=== PATIENT | male | born 1930 | race Caucasian/White ===

== ENCOUNTER 2018-10-10 16:22 | Inpatient (IN) ==
[2018-10-10] MEDS ORDERED: ROBITUSSIN (PLAIN) GT PRN (19:44)
[2018-10-10] MEDS ORDERED: SALINE 0.9% 3 ML NEB TX NEB PRN (20:01)
[2018-10-10] MEDS ORDERED: MIRALAX POWDER (1 DOSE 17 G) PO PRN (20:04)
[2018-10-10] MEDS: DUONEB 0.5 MG/3 MG NEB SCH (20:19)
[2018-10-10] MEDS: LIPITOR TAB 40 MG GT SCH (21:34)
[2018-10-10] MEDS: XALATAN EACHEYE SCH (21:35)
[2018-10-10] MEDS: SENOKOT PO SCH (21:35)
[2018-10-10] MEDS: ARTIFICIAL TEARS DROPS EACHEYE SCH (21:36)
[2018-10-10] MEDS: HEPARIN SODIUM INJ 5000 UNITS SC SCH (22:44)
[2018-10-11 06:04] LABS: BASOPHILS # (AUTO) 0.1 X10^3/uL (0.0-0.1); BASOPHILS % (AUTO) 0.5 % (0.2-1.0); EOSINOPHILS # (AUTO) 0.2 x10^3/uL (0.0-0.2); EOSINOPHILS % (AUTO) 2.2 % (0.9-2.9); HEMOGLOBIN 13.1 g/dL (13.5-18.0); LYMPHOCYTES % (AUTO) 9.1 % (21.0-51.0); MEAN CORPUSCULAR HEMOGLOBIN 30.4 pg (27.0-34.0); MEAN CORPUSCULAR HGB CONC 34.6 g/dL (33.0-35.0); MEAN PLATELET VOLUME 9.2 fL (7.4-11.0); MONOCYTES # (AUTO) 1.2 x10^3/uL (0.3-0.8); MONOCYTES % (AUTO) 10.8 % (0.0-13.0); NEUTROPHILS # (AUTO) 8.9 x10^3/uL (2.2-4.8); NEUTROPHILS % (AUTO) 77.4 % (42.0-75.0); PLATELET COUNT 325 X10^3/uL (150.0-450.0); RED BLOOD COUNT 4.31 X10^6/uL (4.7-6.0); RED CELL DISTRIBUTION WIDTH 14.6 % (11.6-16.5); WHITE BLOOD COUNT 11.5 X10^3/uL (3.6-10.0)
[2018-10-11] MEDS: ARTIFICIAL TEARS DROPS EACHEYE SCH ×3 (06:05→22:12)
[2018-10-11 06:15] LABS: ALANINE AMINOTRANSFERASE 45 Units/L (12-78); ALBUMIN 2.6 g/dL (3.4-5.0); ALKALINE PHOSPHATASE 68 Units/L (46-116); ASPARTATE AMINO TRANSFERASE 35 Units/L (15-37); BLOOD UREA NITROGEN 45 mg/dL (7-18); CALCIUM 8.5 mg/dL (8.5-10.1); CARBON DIOXIDE 25.4 mmol/L (21-32); CHLORIDE 108 mmol/L (98-107); COR CA(FOR HYPOALB) 9.6 mg/dL (8.5-10.1); COR NA(FOR HYPERGLY) 142 mmol/L (136-145); CREATININE 0.93 mg/dL (0.70-1.30); SODIUM 142 mmol/L (136-145); eGFR NON BLACK RACES > 60 (>60)
[2018-10-11] MEDS ORDERED: K-DUR TAB 20 MEQ PO PRN (06:19)
[2018-10-11] MEDS ORDERED: MAGNESIUM SULFATE 1 GRAM/100 mL PREMIX 1 GM/100 ML BAG IV PRN (06:19)
[2018-10-11] MEDS ORDERED: KLOR-CON PO PRN (06:19)
[2018-10-11] MEDS ORDERED: POTASSIUM CHLORIDE LIQ 20 MEQ UDC PO PRN (06:19)
[2018-10-11] MEDS ORDERED: K-RIDER 10 MEQ/NS 100 ML 10 MEQ/100 ML BAG IV PRN (06:19)
[2018-10-11] MEDS ORDERED: POTASSIUM CHL 60 MEQ/NS 0.45% 500 ML IV PRN (06:19)
[2018-10-11] MEDS ORDERED: MICRO K EXTEN CAP 10 MEQ PO PRN (06:19)
[2018-10-11] MEDS ORDERED: POTASSIUM CHL 40 MEQ/NS 0.45% 500 ML IV PRN (06:19)
[2018-10-11] MEDS: HEPARIN SODIUM INJ 5000 UNITS SC SCH ×3 (06:26→21:00)
--- NOTE | 2018-10-11 07:08 | RAD ---
History: Left-sided weakness. Study: Single-view chest. Comparison: None. Findings: The trachea is midline. The cardiac silhouette is at the upper limits of normal in size given the portable technique. There is subsegmental atelectasis in the right lung base. The lungs are otherwise clear without focal consolidation, pleural effusion or pneumothorax. There is an old healed fracture of the midclavicle on the left. The bony thorax is otherwise grossly unremarkable. Impression: Subsegmental atelectasis in the right lung base. Otherwise, no acute cardiopulmonary process. Reported By:
[2018-10-11] MEDS: DUONEB 0.5 MG/3 MG NEB SCH ×3 (09:00→17:52)
[2018-10-11] MEDS: LASIX GT SCH (10:01)
[2018-10-11] MEDS: CLARITIN GT SCH (10:01)
[2018-10-11] MEDS: ASPIRIN GT SCH (10:01)
[2018-10-11] MEDS: PROzac PO SCH (10:01)
[2018-10-11] MEDS ORDERED: BUTT CREAM (COMPOUND) TOP PRN (14:00)
[2018-10-11] MEDS ORDERED: BUTT CREAM (COMPOUND) ONE (14:01)
--- NOTE | 2018-10-11 15:14 | RAD ---
HISTORY: Cough Study: Single view of the chest. Comparison: None. Findings: The cardiomediastinal silhouette is normal. Interval development of left lung base opacity. Osseous structures demonstrate no acute abnormality. Bilateral hyper expansion with coarsening of interstitial markings. IMPRESSION: 1. New left lung base opacity which may represent acute infection. 2. Findings of COPD. Reported By:
[2018-10-11] MEDS ORDERED: XOPENEX 1.25 MG/3 ML NEBULE NEB SCH (17:15)
[2018-10-11] MEDS ORDERED: XOPENEX 1.25 MG/3 ML NEBULE NEB PRN (17:17)
[2018-10-11] MEDS ORDERED: PHARMACY CONSULT - DOSE _____ XX SCH (18:00)
[2018-10-11] MEDS ORDERED: NS 100 ML IV 100 ML IV ONE (18:28)
[2018-10-11] MEDS: LEVAQUIN PREMIX IV 750 MG 750 MG/150 ML BAG IV SCH (18:48)
[2018-10-11] MEDS: LIPITOR TAB 40 MG GT SCH (20:43)
[2018-10-11] MEDS: SENOKOT PO SCH (20:43)
[2018-10-11] MEDS: XALATAN EACHEYE SCH (20:44)
[2018-10-11] MEDS: TYLENOL ELIXIR 325 MG UDC GT PRN (20:47)
[2018-10-11] MEDS: BROVANA IN SCH (21:13)
[2018-10-11] MEDS: PULMICORT NEB TX 0.5 MG NEB SCH (21:13)
[2018-10-12] MEDS: XOPENEX 1.25 MG/3 ML NEBULE NEB SCH ×6 (00:48→17:15)
[2018-10-12] MEDS: ARTIFICIAL TEARS DROPS EACHEYE SCH ×3 (05:21→21:10)
[2018-10-12] MEDS: HEPARIN SODIUM INJ 5000 UNITS SC SCH ×3 (05:21→21:10)
[2018-10-12 06:10] LABS: BASOPHILS # (AUTO) 0.1 X10^3/uL (0.0-0.1); BASOPHILS % (AUTO) 0.5 % (0.2-1.0); EOSINOPHILS # (AUTO) 0.2 x10^3/uL (0.0-0.2); EOSINOPHILS % (AUTO) 1.6 % (0.9-2.9); HEMATOCRIT 37.3 % (42.0-54.0); LYMPHOCYTES # (AUTO) 0.9 X10^3/uL (1.3-2.9); LYMPHOCYTES % (AUTO) 8.2 % (21.0-51.0); MEAN CORPUSCULAR HEMOGLOBIN 30.4 pg (27.0-34.0); MEAN CORPUSCULAR HGB CONC 34.9 g/dL (33.0-35.0); MEAN CORPUSCULAR VOLUME 87.2 fL (80.0-100.0); MEAN PLATELET VOLUME 9.1 fL (7.4-11.0); MONOCYTES # (AUTO) 1.3 x10^3/uL (0.3-0.8); MONOCYTES % (AUTO) 11.6 % (0.0-13.0); NEUTROPHILS # (AUTO) 8.9 x10^3/uL (2.2-4.8); NEUTROPHILS % (AUTO) 78.1 % (42.0-75.0); PLATELET COUNT 356 X10^3/uL (150.0-450.0); RED BLOOD COUNT 4.28 X10^6/uL (4.7-6.0); RED CELL DISTRIBUTION WIDTH 14.3 % (11.6-16.5); WHITE BLOOD COUNT 11.4 X10^3/uL (3.6-10.0)
[2018-10-12 06:25] LABS: ALANINE AMINOTRANSFERASE 42 Units/L (12-78); ALBUMIN 2.6 g/dL (3.4-5.0); ALKALINE PHOSPHATASE 69 Units/L (46-116); ASPARTATE AMINO TRANSFERASE 31 Units/L (15-37); BLOOD UREA NITROGEN 38 mg/dL (7-18); CALCIUM 8.5 mg/dL (8.5-10.1); CARBON DIOXIDE 25.8 mmol/L (21-32); CHLORIDE 107 mmol/L (98-107); COR CA(FOR HYPOALB) 9.6 mg/dL (8.5-10.1); CREATININE 1.06 mg/dL (0.70-1.30); SODIUM 140 mmol/L (136-145); eGFR NON BLACK RACES > 60 (>60)
[2018-10-12] MEDS: BROVANA IN SCH ×2 (07:59→20:17)
[2018-10-12] MEDS: PULMICORT NEB TX 0.5 MG NEB SCH ×2 (07:59→20:17)
[2018-10-12] MEDS: LASIX GT SCH (10:06)
[2018-10-12] MEDS: LEVAQUIN PREMIX IV 750 MG 750 MG/150 ML BAG IV SCH (10:06)
[2018-10-12] MEDS: ASPIRIN GT SCH (10:07)
[2018-10-12] MEDS: CLARITIN GT SCH (10:07)
[2018-10-12] MEDS: PROzac PO SCH (10:07)
--- NOTE | 2018-10-12 17:58 | DR.H&P ---
H&P - History & Physical for Day of: H&P Date: 10/11/18 - Chief Complaint Chief Complaint: FAMILY REPORTS SOB, CHEST CONGESTION - History of Present Illness History of Present Illness: 88 WM TRANSFER FROM [place] IN [facility] FOLLOWING FEEDING TUBE PLACEMENT DUE TO CVA WITH DYSPHAGIA. PT CONTINUES WITH MILD GENERALIZED WEAKNESS. - Past Medical History Past Medical History: Arthritis, CVA, Dyslipidemia, GERD, Hypertension - Social History Does patient currently use any type of tobacco product: No Type of Tobacco Use: None Does any household member use tobacco: No Alcohol Use: None Drug Use: None - Medications Home Medications: lorazepam [From Ativan] Allergy (Verified 10/10/18 19:37) zolpidem [From Ambien] Allergy (Verified 10/10/18 19:37) CONTINUE taking the following medications acetaminophen 650 mg FEEDING TUBE Q4H PRN 10/11/18 [History] ampicillin-sulbactam [Unasyn] 3 g IV Q8H 10/11/18 [History] artifi.tears(hypromellose)(PF) 1 drp OPHTHALMIC (EYE) TID 10/11/18 [History] aspirin 325 mg FEEDING TUBE DAILY 10/11/18 [History] atorvastatin [Lipitor] 80 mg FEEDING TUBE HS 10/11/18 [History] diphenoxylate-atropine [Lomotil] 1 tab FEEDING TUBE QID PRN 10/11/18 [History] fluoxetine [Prozac] 20 mg PO DAILY 10/11/18 [History] furosemide [Lasix] 40 mg FEEDING TUBE DAILY 10/11/18 [History] guaifenesin 200 mg FEEDING TUBE Q6H PRN 10/11/18 [History] heparin (porcine) 5,000 unit SUBCUT Q8H 10/11/18 [History] ipratropium-albuterol 3 ml INHALATION QID 10/11/18 [History] loratadine 10 mg FEEDING TUBE DAILY 10/11/18 [History] melatonin 3 mg FEEDING TUBE HS 10/11/18 [History] perflutren lipid microspheres 2 ml IV PRN PRN 10/11/18 [History] polyethylene glycol 3350 [Miralax] 17 g FEEDING TUBE BID 10/11/18 [History] sennosides-docusate sodium [Senokot-S] 2 tab FEEDING TUBE BID 10/11/18 [History] sodium chloride [NebuSal] 4 ml INHALATION Q6H 10/11/18 [History] - Review of Systems Constitutional: No Symptoms Reported, Weakness Eyes: No Symptoms Reported Respiratory: Cough Cardiovascular: No Symptoms Reported Gastrointestinal: Other (PEG TUBE) Genitourinary: No Symptoms Reported Musculoskeletal: No Symptoms Reported Skin: No Symptoms Reported Neurological: Weakness - Physical Exam Vital Signs: Temperature 97.6 F Pulse Rate [Right Radial] 59 Pulse Rate 68 Respiratory Rate 18 Blood Pressure [Right Arm] 144/67 O2 Sat by Pulse Oximetry 96 Oriented: Normal Eyes: Normal Ear: Normal Nose: Normal Throat: Normal Respiratory: Rhonchi Throughout Cardiovascular: Normal. negative: Murmur : Normal Auscultation: Bowel Sounds: Normal Palpation: Normal, Other (PEG TUBE) Tenderness: Normal Skin: Normal Psychiatric: Depression Speech Pattern: Delayed - Assessment/Plan (1) Weakness Status: Acute Plan: REHAB FOR WEAKNESS FOLLOW CVA (2) Aphagia Status: Acute - Allergies Allergies/Adverse Reactions: Allergies Allergy/AdvReac Type Severity Reaction Status Date / Time lorazepam [From Ativan] Allergy Verified 10/10/18 19:37 zolpidem [From Ambien] Allergy Verified 10/10/18 19:37
[2018-10-12] MEDS: TYLENOL ELIXIR 325 MG UDC GT PRN (19:57)
[2018-10-12] MEDS: SENOKOT PO SCH (20:00)
[2018-10-12] MEDS: LIPITOR TAB 40 MG GT SCH (20:00)
[2018-10-12] MEDS: XALATAN EACHEYE SCH (20:00)
[2018-10-13] MEDS: XOPENEX 1.25 MG/3 ML NEBULE NEB SCH ×2 (01:02→05:10)
[2018-10-13] MEDS: HEPARIN SODIUM INJ 5000 UNITS SC SCH (05:07)
[2018-10-13] MEDS: ARTIFICIAL TEARS DROPS EACHEYE SCH (05:08)
--- NOTE | 2018-10-13 06:51 | RAD ---
HISTORY: Cough Study: Chest AP portable Comparison: 10/11/2018 Findings: The heart is within normal limits in size. No congestive heart failure is noted. The aorta is calcified. The lungs appear free of acute alveolar infiltrates. Mild interstitial lung changes are present. The bony thorax is unremarkable. IMPRESSION: Lungs free of acute alveolar infiltrates at this time Mild interstitial lung changes, stable Reported By:
[2018-10-13 08:22] VITALS: BP 115/59
[2018-10-13] MEDS ORDERED: ZOFRAN INJ 4 MG VIAL IVP PRN (08:42)
[2018-10-13] MEDS: BROVANA IN SCH (08:54)
[2018-10-13] MEDS: PULMICORT NEB TX 0.5 MG NEB SCH (08:54)
[2018-10-13] MEDS: LEVAQUIN PREMIX IV 750 MG 750 MG/150 ML BAG IV SCH (08:58)
[2018-10-13] MEDS: LASIX GT SCH (08:58)
[2018-10-13] MEDS: CLARITIN GT SCH (08:58)
[2018-10-13] MEDS: ASPIRIN GT SCH (08:58)
[2018-10-13] MEDS: PROzac PO SCH (08:58)
== END 2018-10-13 09:00 | disposition critical access hospital (66) | DRG 949 ==
LOC: MED/SURG 18:49
PROVIDERS: ADMIT Internal Medicine; ATTEND Internal Medicine
DX: R06.02 Shortness of breath; E78.2 Mixed hyperlipidemia; R53.1 Weakness; Z93.1 Gastrostomy status; I63.89 Other cerebral infarction; R26.89 Other abnormalities of gait and mobility; I50.9 Heart failure, unspecified; Z51.89 Encounter for other specified aftercare; R13.0 Aphagia; I95.89 Other hypotension
CPT/HCPCS: 36415; 71010; 71045; 80053; 83735; 85025; 85610; 85730; 87070; 87077; 87186; 87205; 92507; 92523; 92526; 92610; 94640; 94760; 97110; 97112; 97162; 97167; 97530; 97535; A4222; J1644; J1956; J2405; J7050; J7620; J7626

== ENCOUNTER 2018-10-13 09:00 | Inpatient (IN) ==
[~2018-10-13 09:00] MED LIST: TYLENOL ELIXIR 325 MG UDC GT PRN; XOPENEX 1.25 MG/3 ML NEBULE NEB PRN
[2018-10-13] MEDS: XOPENEX 1.25 MG/3 ML NEBULE NEB SCH ×3 (11:28→17:16)
[2018-10-13 11:42] LABS: BASOPHILS % (AUTO) 0.3 % (0.2-1.0); EOSINOPHILS # (AUTO) 0.4 x10^3/uL (0.0-0.2); EOSINOPHILS % (AUTO) 2.6 % (0.9-2.9); HEMATOCRIT 37.8 % (42.0-54.0); LYMPHOCYTES # (AUTO) 0.4 X10^3/uL (1.3-2.9); LYMPHOCYTES % (AUTO) 3.1 % (21.0-51.0); MEAN CORPUSCULAR HEMOGLOBIN 30.1 pg (27.0-34.0); MEAN CORPUSCULAR HGB CONC 34.5 g/dL (33.0-35.0); MEAN CORPUSCULAR VOLUME 87.4 fL (80.0-100.0); MEAN PLATELET VOLUME 8.2 fL (7.4-11.0); MONOCYTES # (AUTO) 1.3 x10^3/uL (0.3-0.8); MONOCYTES % (AUTO) 9.8 % (0.0-13.0); NEUTROPHILS # (AUTO) 11.2 x10^3/uL (2.2-4.8); NEUTROPHILS % (AUTO) 84.2 % (42.0-75.0); PLATELET COUNT 352 X10^3/uL (150.0-450.0); RED BLOOD COUNT 4.32 X10^6/uL (4.7-6.0); RED CELL DISTRIBUTION WIDTH 14.5 % (11.6-16.5); WHITE BLOOD COUNT 13.3 X10^3/uL (3.6-10.0)
[2018-10-13 11:57] LABS: ALANINE AMINOTRANSFERASE 39 Units/L (12-78); ALBUMIN 2.7 g/dL (3.4-5.0); ALKALINE PHOSPHATASE 74 Units/L (46-116); ASPARTATE AMINO TRANSFERASE 22 Units/L (15-37); BLOOD UREA NITROGEN 30 mg/dL (7-18); CALCIUM 8.8 mg/dL (8.5-10.1); CARBON DIOXIDE 27.6 mmol/L (21-32); CHLORIDE 104 mmol/L (98-107); COR CA(FOR HYPOALB) 9.8 mg/dL (8.5-10.1); COR NA(FOR HYPERGLY) 141 mmol/L (136-145); CREATININE 1.32 mg/dL (0.70-1.30); SODIUM 140 mmol/L (136-145); TOTAL PROTEIN 6.2 g/dL (6.4-8.2); eGFR NON BLACK RACES 54 (>60)
[2018-10-13] MEDS ORDERED: BUTT CREAM (COMPOUND) TOP PRN (12:10)
[2018-10-13] MEDS ORDERED: MIRALAX POWDER (1 DOSE 17 G) PO PRN (12:13)
[2018-10-13] MEDS: ARTIFICIAL TEARS DROPS EACHEYE SCH ×2 (15:26→22:51)
[2018-10-13] MEDS ORDERED: NS 1/2 1000 ML IV 1,000 ML IV ONE (15:32)
[2018-10-13] MEDS: HEPARIN SODIUM INJ 5000 UNITS SC SCH ×2 (15:51→20:52)
[2018-10-13] MEDS: NS 1/2 1000 ML IV 1,000 ML IV SCH (15:51)
[2018-10-13] MEDS: LIPITOR TAB 40 MG GT SCH (20:52)
[2018-10-13] MEDS: SENOKOT PO SCH (20:52)
[2018-10-13] MEDS: ROBITUSSIN (PLAIN) GT PRN (20:52)
[2018-10-13] MEDS: XALATAN EACHEYE SCH (20:53)
[2018-10-13] MEDS: BROVANA IN SCH (21:11)
[2018-10-13] MEDS: PULMICORT NEB TX 0.5 MG NEB SCH (21:11)
[2018-10-14] MEDS: XOPENEX 1.25 MG/3 ML NEBULE NEB SCH ×4 (00:41→17:18)
[2018-10-14] MEDS ORDERED: NS 1/2 1000 ML IV 1,000 ML IV ONE ×2 (02:08→20:33)
[2018-10-14] MEDS: HEPARIN SODIUM INJ 5000 UNITS SC SCH ×3 (04:07→20:41)
[2018-10-14] MEDS: NS 1/2 1000 ML IV 1,000 ML IV SCH (04:07)
[2018-10-14 05:23] LABS: BASOPHILS # (AUTO) 0.1 X10^3/uL (0.0-0.1); EOSINOPHILS # (AUTO) 0.5 x10^3/uL (0.0-0.2); EOSINOPHILS % (AUTO) 4.9 % (0.9-2.9); HEMATOCRIT 37.6 % (42.0-54.0); HEMOGLOBIN 13.1 g/dL (13.5-18.0); LYMPHOCYTES # (AUTO) 0.6 X10^3/uL (1.3-2.9); LYMPHOCYTES % (AUTO) 6.2 % (21.0-51.0); MEAN CORPUSCULAR HEMOGLOBIN 30.3 pg (27.0-34.0); MEAN CORPUSCULAR HGB CONC 34.7 g/dL (33.0-35.0); MEAN CORPUSCULAR VOLUME 87.2 fL (80.0-100.0); MEAN PLATELET VOLUME 8.8 fL (7.4-11.0); MONOCYTES # (AUTO) 1.3 x10^3/uL (0.3-0.8); MONOCYTES % (AUTO) 13.1 % (0.0-13.0); NEUTROPHILS # (AUTO) 7.3 x10^3/uL (2.2-4.8); NEUTROPHILS % (AUTO) 74.8 % (42.0-75.0); PLATELET COUNT 350 X10^3/uL (150.0-450.0); RED BLOOD COUNT 4.31 X10^6/uL (4.7-6.0); RED CELL DISTRIBUTION WIDTH 14.6 % (11.6-16.5); WHITE BLOOD COUNT 9.8 X10^3/uL (3.6-10.0)
[2018-10-14 05:40] LABS: ALANINE AMINOTRANSFERASE 41 Units/L (12-78); ALBUMIN 2.6 g/dL (3.4-5.0); ALKALINE PHOSPHATASE 71 Units/L (46-116); ASPARTATE AMINO TRANSFERASE 30 Units/L (15-37); BLOOD UREA NITROGEN 30 mg/dL (7-18); CALCIUM 8.6 mg/dL (8.5-10.1); CARBON DIOXIDE 29.4 mmol/L (21-32); CHLORIDE 104 mmol/L (98-107); CREATININE 1.21 mg/dL (0.70-1.30); SODIUM 140 mmol/L (136-145); TOTAL PROTEIN 6.1 g/dL (6.4-8.2); eGFR NON BLACK RACES > 60 (>60)
[2018-10-14 05:41] LABS: COR CA(FOR HYPOALB) 9.7 mg/dL (8.5-10.1)
[2018-10-14] MEDS: ARTIFICIAL TEARS DROPS EACHEYE SCH ×3 (06:15→21:09)
[2018-10-14 06:30] VITALS: BMI 20.1
--- NOTE | 2018-10-14 06:39 | RAD ---
HISTORY: Aspiration pneumonia Study: Chest AP portable Comparison: 10/13/2018, 10/11/2018 Findings: The heart is within normal limits in size. The mavis are normal. The aorta is calcified. The lungs are well inflated. There is now visualized is a retrocardiac left lower lobe infiltrate which did not appear to be present on the prior examination. No other alveolar infiltrates are identified. There is a background of more chronic interstitial lung changes which is stable. Bony thorax is unremarkable. IMPRESSION: Small retrocardiac left lower lobe infiltrate has developed in the interim since the prior examination Interstitial lung changes, stable Reported By:
[2018-10-14] MEDS: BROVANA IN SCH ×2 (08:59→21:04)
[2018-10-14] MEDS: PULMICORT NEB TX 0.5 MG NEB SCH ×2 (08:59→21:04)
[2018-10-14] MEDS: ASPIRIN PO SCH (09:05)
[2018-10-14] MEDS: LEVAQUIN PREMIX IV 750 MG 750 MG/150 ML BAG IV SCH (09:06)
[2018-10-14] MEDS: PROzac PO SCH (09:06)
[2018-10-14] MEDS: LASIX GT SCH (09:06)
[2018-10-14] MEDS: CLARITIN GT SCH (09:06)
--- NOTE | 2018-10-14 15:21 | DR.UPDATE ---
H&P Update History and Physical Update: History and Physical reviewed and patient examined. H & P ON 10/11/2018 Yes with the following: PT HAD INCREASED CHEST CONGESTION AND CXR REVEALED PNEUMONIA. PT CURRENTLY ON IV ATBX WITH RESP THERAPY AND SPUTUM COLLECTED.
--- NOTE | 2018-10-14 15:24 | PCM.PROG ---
Progress Note - Progress Note for Day of Date of Exam: 10/14/18 - Subjective Subjective: 88 WM ADMITTED TO INPATIENT STATUS ON 10/13 WITH PNEUMONIA. SPUTUM +BURKHOLDERIA CEPACIA. PT IS CURRENTLY ON IV ATBX WITH RESP THERAPY. PT HAS HX OF DYSPHAGIA DUE TO CVA AND HAS BEEN WORKING WELL WITH PT/OT. PT CONTINUES WITH MILD LEFT FACIAL DROOPING, IMPROVING SPEECH. PLAN FOR MODIFIED BARIUM SWALLOW ON WEDNESDAY. - Past Medical Family Social History Past Med/Fam/Surg Hx: No changes since H&P Allergies: Allergies lorazepam [From Ativan] Allergy (Verified 10/10/18 19:37) zolpidem [From Ambien] Allergy (Verified 10/10/18 19:37) - Review of Systems ROS: No change since H&P - Vital Signs and I&O's Vital Signs: Temperature 97.8 F Pulse Rate [Right Brachial] 66 Pulse Rate 64 Respiratory Rate 22 Blood Pressure [Right Arm] 119/56 Blood Pressure 115/59 O2 Sat by Pulse Oximetry 96 Intake and Output: Intake & Output 10/12/18 10/13/18 10/14/18 10/15/18 11:59 11:59 11:59 11:59 Intake Total 1092 / 1092 Balance 1092 / 1092 - Physical Exam Oriented: Normal Eyes: Normal Ear: Normal Nose: Normal Throat: Normal Respiratory: Diminished, Rhonchi Cardiovascular: Normal : Normal Auscultation: Bowel Sounds: Normal Palpation: Normal Tenderness: Normal Skin: Normal, Other (PEG TUBE) Musculoskeletal: Motor Deficit Mood Description: Calm Speech Pattern: Appropriate, Slurred (MILDLY) - Laboratory and Diagnostics Result Diagrams: 10/14/18 04:25 10/14/18 04:25 Labs: Laboratory WBC 9.8 X10^3/uL (3.6-10.0) 10/14/18 04:25 RBC 4.31 X10^6/uL (4.7-6.0) L 10/14/18 04:25 Hgb 13.1 g/dL (13.5-18.0) L 10/14/18 04:25 Hct 37.6 % (42.0-54.0) L 10/14/18 04:25 MCV 87.2 fL (80.0-100.0) 10/14/18 04:25 MCH 30.3 pg (27.0-34.0) 10/14/18 04:25 MCHC 34.7 g/dL (33.0-35.0) 10/14/18 04:25 RDW 14.6 % (11.6-16.5) 10/14/18 04:25 Plt Count 350 X10^3/uL (150.0-450.0) 10/14/18 04:25 MPV 8.8 fL (7.4-11.0) 10/14/18 04:25 Neut % (Auto) 74.8 % (42.0-75.0) 10/14/18 04:25 Lymph % (Auto) 6.2 % (21.0-51.0) L 10/14/18 04:25 Bartholomew % (Auto) 13.1 % (0.0-13.0) H 10/14/18 04:25 Eos % (Auto) 4.9 % (0.9-2.9) H 10/14/18 04:25 Baso % (Auto) 1.0 % (0.2-1.0) 10/14/18 04:25 Neut # (Auto) 7.3 x10^3/uL (2.2-4.8) H 10/14/18 04:25 Lymph # (Auto) 0.6 X10^3/uL (1.3-2.9) L 10/14/18 04:25 Bartholomew # (Auto) 1.3 x10^3/uL (0.3-0.8) H 10/14/18 04:25 Eos # (Auto) 0.5 x10^3/uL (0.0-0.2) H 10/14/18 04:25 Baso # (Auto) 0.1 X10^3/uL (0.0-0.1) 10/14/18 04:25 Absolute Nucleated RBC 0.1 /100WBC 10/14/18 04:25 Sodium 140 mmol/L (136-145) 10/14/18 04:25 Corrected Sodium TNP 10/14/18 04:25 Potassium 4.0 mmol/L (3.5-5.1) 10/14/18 04:25 Chloride 104 mmol/L (98-107) 10/14/18 04:25 Carbon Dioxide 29.4 mmol/L (21-32) 10/14/18 04:25 BUN 30 mg/dL (7-18) H 10/14/18 04:25 Creatinine 1.21 mg/dL (0.70-1.30) 10/14/18 04:25 Est GFR (MDRD) Af Amer > 60 (>60) 10/14/18 04:25 Est GFR (MDRD) Non-Af > 60 (>60) 10/14/18 04:25 Glucose 110 mg/dL (65-99) H 10/14/18 04:25 Calcium 8.6 mg/dL (8.5-10.1) 10/14/18 04:25 Corrected Calcium 9.7 mg/dL (8.5-10.1) 10/14/18 04:25 Total Bilirubin 0.40 mg/dL (0.2-1.0) 10/14/18 04:25 AST 30 Units/L (15-37) 10/14/18 04:25 ALT 41 Units/L (12-78) 10/14/18 04:25 Alkaline Phosphatase 71 Units/L (46-116) 10/14/18 04:25 Total Protein 6.1 g/dL (6.4-8.2) L 10/14/18 04:25 Albumin 2.6 g/dL (3.4-5.0) L 10/14/18 04:25 Globulin 3.5 g/dL (2.5-4.5) 10/14/18 04:25 Albumin/Globulin Ratio 0.7 Ratio (1.1-2.1) L 10/14/18 04:25 - Plan (1) Pneumonia Status: Acute Plan: CONTINUE IV ATBX, RESP THERAPY. SUPPLEMENTAL O2, REPEAT AM CXR AND LABS (2) Weakness Status: Acute (3) Aphagia Status: Acute
[2018-10-14] MEDS: LIPITOR TAB 40 MG GT SCH (20:43)
[2018-10-14] MEDS: SENOKOT PO SCH (20:43)
[2018-10-14] MEDS: XALATAN EACHEYE SCH (20:44)
[2018-10-15] MEDS: XOPENEX 1.25 MG/3 ML NEBULE NEB SCH ×6 (04:43→19:02)
[2018-10-15] MEDS: NS 1/2 1000 ML IV 1,000 ML IV SCH ×2 (04:52→15:46)
[2018-10-15 05:30] LABS: BASOPHILS % (AUTO) 0.4 % (0.2-1.0); EOSINOPHILS # (AUTO) 0.4 x10^3/uL (0.0-0.2); EOSINOPHILS % (AUTO) 4.7 % (0.9-2.9); HEMOGLOBIN 12.6 g/dL (13.5-18.0); LYMPHOCYTES # (AUTO) 0.6 X10^3/uL (1.3-2.9); LYMPHOCYTES % (AUTO) 7.1 % (21.0-51.0); MEAN CORPUSCULAR HEMOGLOBIN 30.3 pg (27.0-34.0); MEAN CORPUSCULAR VOLUME 86.5 fL (80.0-100.0); MEAN PLATELET VOLUME 8.3 fL (7.4-11.0); MONOCYTES # (AUTO) 1.1 x10^3/uL (0.3-0.8); MONOCYTES % (AUTO) 12.6 % (0.0-13.0); NEUTROPHILS # (AUTO) 6.6 x10^3/uL (2.2-4.8); NEUTROPHILS % (AUTO) 75.2 % (42.0-75.0); PLATELET COUNT 334 X10^3/uL (150.0-450.0); RED BLOOD COUNT 4.17 X10^6/uL (4.7-6.0); RED CELL DISTRIBUTION WIDTH 14.5 % (11.6-16.5); WHITE BLOOD COUNT 8.7 X10^3/uL (3.6-10.0)
[2018-10-15 05:42] LABS: ALANINE AMINOTRANSFERASE 40 Units/L (12-78); ALBUMIN 2.5 g/dL (3.4-5.0); ALKALINE PHOSPHATASE 68 Units/L (46-116); ASPARTATE AMINO TRANSFERASE 29 Units/L (15-37); BLOOD UREA NITROGEN 26 mg/dL (7-18); CALCIUM 8.5 mg/dL (8.5-10.1); CARBON DIOXIDE 26.8 mmol/L (21-32); CHLORIDE 103 mmol/L (98-107); COR CA(FOR HYPOALB) 9.7 mg/dL (8.5-10.1); CREATININE 1.02 mg/dL (0.70-1.30); SODIUM 137 mmol/L (136-145); TOTAL PROTEIN 5.8 g/dL (6.4-8.2); eGFR NON BLACK RACES > 60 (>60)
[2018-10-15] MEDS: HEPARIN SODIUM INJ 5000 UNITS SC SCH ×3 (05:48→21:00)
[2018-10-15] MEDS: ARTIFICIAL TEARS DROPS EACHEYE SCH ×3 (05:50→21:01)
[2018-10-15] MEDS: LASIX GT SCH (09:31)
[2018-10-15] MEDS: ASPIRIN PO SCH (09:31)
[2018-10-15] MEDS: PROzac PO SCH (09:31)
[2018-10-15] MEDS: CLARITIN GT SCH (09:31)
[2018-10-15] MEDS: LEVAQUIN PREMIX IV 750 MG 750 MG/150 ML BAG IV SCH (09:31)
[2018-10-15] MEDS: BROVANA IN SCH ×2 (09:33→20:46)
[2018-10-15] MEDS: PULMICORT NEB TX 0.5 MG NEB SCH ×2 (09:33→20:46)
[2018-10-15] MEDS: ZOFRAN INJ 4 MG VIAL IVP PRN ×2 (16:16→22:16)
[2018-10-15] MEDS: LIPITOR TAB 40 MG GT SCH (21:01)
[2018-10-15] MEDS: SENOKOT PO SCH (21:01)
[2018-10-15] MEDS: XALATAN EACHEYE SCH (21:01)
[2018-10-15] MEDS ORDERED: PHENERGAN INJ 25 MG ONE (21:15)
[2018-10-15] MEDS: PHENERGAN INJ 25 MG IV PRN (21:18)
[2018-10-15] MEDS ORDERED: LANTISEPTIC TOP PRN (21:31)
[2018-10-15] MEDS: PROTONIX INJ 40 MG VIAL IVP SCH (23:28)
[2018-10-16] MEDS: XOPENEX 1.25 MG/3 ML NEBULE NEB SCH ×5 (00:05→18:22)
[2018-10-16] MEDS: HEPARIN SODIUM INJ 5000 UNITS SC SCH ×3 (05:15→21:19)
[2018-10-16] MEDS: ARTIFICIAL TEARS DROPS EACHEYE SCH ×3 (05:16→21:21)
[2018-10-16] MEDS: NS 1/2 1000 ML IV 1,000 ML IV SCH (05:16)
[2018-10-16] MEDS ORDERED: NS 1/2 1000 ML IV 1,000 ML IV ONE (05:17)
[2018-10-16 05:20] LABS: BASOPHILS # (AUTO) 0.1 X10^3/uL (0.0-0.1); BASOPHILS % (AUTO) 0.4 % (0.2-1.0); EOSINOPHILS # (AUTO) 0.3 x10^3/uL (0.0-0.2); EOSINOPHILS % (AUTO) 1.6 % (0.9-2.9); HEMATOCRIT 36.3 % (42.0-54.0); HEMOGLOBIN 12.7 g/dL (13.5-18.0); LYMPHOCYTES # (AUTO) 0.6 X10^3/uL (1.3-2.9); LYMPHOCYTES % (AUTO) 3.5 % (21.0-51.0); MEAN CORPUSCULAR HEMOGLOBIN 30.3 pg (27.0-34.0); MEAN CORPUSCULAR HGB CONC 34.9 g/dL (33.0-35.0); MEAN CORPUSCULAR VOLUME 86.8 fL (80.0-100.0); MEAN PLATELET VOLUME 8.8 fL (7.4-11.0); MONOCYTES # (AUTO) 1.6 x10^3/uL (0.3-0.8); NEUTROPHILS # (AUTO) 15.2 x10^3/uL (2.2-4.8); NEUTROPHILS % (AUTO) 85.5 % (42.0-75.0); PLATELET COUNT 369 X10^3/uL (150.0-450.0); RED BLOOD COUNT 4.19 X10^6/uL (4.7-6.0); RED CELL DISTRIBUTION WIDTH 14.6 % (11.6-16.5); WHITE BLOOD COUNT 17.8 X10^3/uL (3.6-10.0)
[2018-10-16 05:37] LABS: ALANINE AMINOTRANSFERASE 39 Units/L (12-78); ALBUMIN 2.6 g/dL (3.4-5.0); ALKALINE PHOSPHATASE 70 Units/L (46-116); ASPARTATE AMINO TRANSFERASE 28 Units/L (15-37); BLOOD UREA NITROGEN 22 mg/dL (7-18); CALCIUM 8.6 mg/dL (8.5-10.1); CARBON DIOXIDE 26.3 mmol/L (21-32); CHLORIDE 102 mmol/L (98-107); COR CA(FOR HYPOALB) 9.7 mg/dL (8.5-10.1); COR NA(FOR HYPERGLY) 136 mmol/L (136-145); CREATININE 1.11 mg/dL (0.70-1.30); SODIUM 136 mmol/L (136-145); TOTAL PROTEIN 5.9 g/dL (6.4-8.2); eGFR NON BLACK RACES > 60 (>60)
--- NOTE | 2018-10-16 07:06 | RAD ---
Examination: Portable AP chest History: Pneumonia Comparison 10/14/2018 Findings: Continued upper normal heart size. Diffuse interstitial prominence consistent with chronic disease. Persistent infiltrate in the left lower lobe as previously noted. No discrete mass or focal consolidation, pneumothorax or pleural effusion. 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 Reported By:
[2018-10-16] MEDS: PULMICORT NEB TX 0.5 MG NEB SCH ×3 (07:41→20:26)
[2018-10-16] MEDS: BROVANA IN SCH ×3 (07:41→20:26)
[2018-10-16] MEDS: CLARITIN GT SCH (09:15)
[2018-10-16] MEDS: PROTONIX INJ 40 MG VIAL IVP SCH ×2 (09:15→21:19)
[2018-10-16] MEDS: PROzac PO SCH (09:15)
[2018-10-16] MEDS: ASPIRIN PO SCH (09:15)
[2018-10-16] MEDS: LASIX GT SCH (09:15)
[2018-10-16] MEDS: LEVAQUIN PREMIX IV 750 MG 750 MG/150 ML BAG IV SCH (09:15)
[2018-10-16] MEDS: LIPITOR TAB 40 MG GT SCH (21:20)
[2018-10-16] MEDS: XALATAN EACHEYE SCH (21:20)
[2018-10-16] MEDS: SENOKOT PO SCH (21:20)
[2018-10-17] MEDS: XOPENEX 1.25 MG/3 ML NEBULE NEB SCH ×4 (01:00→17:02)
[2018-10-17] MEDS ORDERED: NS 1/2 1000 ML IV 0 ML IV ONE (04:57)
[2018-10-17] MEDS: HEPARIN SODIUM INJ 5000 UNITS SC SCH ×3 (04:59→21:17)
[2018-10-17] MEDS: NS 1/2 1000 ML IV 1,000 ML IV SCH ×2 (05:00→05:01)
[2018-10-17] MEDS: ARTIFICIAL TEARS DROPS EACHEYE SCH ×3 (05:01→21:17)
[2018-10-17 05:54] LABS: BASOPHILS % (AUTO) 0.4 % (0.2-1.0); EOSINOPHILS # (AUTO) 0.3 x10^3/uL (0.0-0.2); HEMATOCRIT 36.5 % (42.0-54.0); HEMOGLOBIN 12.9 g/dL (13.5-18.0); LYMPHOCYTES % (AUTO) 9.2 % (21.0-51.0); MEAN CORPUSCULAR HEMOGLOBIN 30.6 pg (27.0-34.0); MEAN CORPUSCULAR HGB CONC 35.5 g/dL (33.0-35.0); MEAN CORPUSCULAR VOLUME 86.2 fL (80.0-100.0); MEAN PLATELET VOLUME 8.7 fL (7.4-11.0); MONOCYTES # (AUTO) 1.3 x10^3/uL (0.3-0.8); MONOCYTES % (AUTO) 12.5 % (0.0-13.0); NEUTROPHILS # (AUTO) 7.7 x10^3/uL (2.2-4.8); NEUTROPHILS % (AUTO) 74.9 % (42.0-75.0); PLATELET COUNT 318 X10^3/uL (150.0-450.0); RED BLOOD COUNT 4.23 X10^6/uL (4.7-6.0); RED CELL DISTRIBUTION WIDTH 14.6 % (11.6-16.5); WHITE BLOOD COUNT 10.3 X10^3/uL (3.6-10.0)
[2018-10-17 06:17] LABS: ALANINE AMINOTRANSFERASE 38 Units/L (12-78); ALBUMIN 2.5 g/dL (3.4-5.0); ALKALINE PHOSPHATASE 72 Units/L (46-116); ASPARTATE AMINO TRANSFERASE 29 Units/L (15-37); BLOOD UREA NITROGEN 20 mg/dL (7-18); CALCIUM 8.7 mg/dL (8.5-10.1); CARBON DIOXIDE 24.1 mmol/L (21-32); CHLORIDE 103 mmol/L (98-107); COR CA(FOR HYPOALB) 9.9 mg/dL (8.5-10.1); CREATININE 1.11 mg/dL (0.70-1.30); SODIUM 137 mmol/L (136-145); TOTAL PROTEIN 5.9 g/dL (6.4-8.2); eGFR NON BLACK RACES > 60 (>60)
--- NOTE | 2018-10-17 07:01 | RAD ---
HISTORY: Follow-up pneumonia Study: Chest AP portable Comparison: 10/16/2018, 10/14/2018 Findings: The heart is mildly enlarged. No congestive heart failure is noted. The aorta is calcified. Interstitial lung changes are again identified likely chronic. There is persistent small infiltrate in the retrocardiac area of the left lower lobe slightly improved when compared with the prior examination. No pleural effusions are identified. The bony thorax is unremarkable. IMPRESSION: Slight improvement retrocardiac left lower lobe infiltrate Diffuse interstitial lung changes likely chronic Mild cardiomegaly without congestive heart failure Reported By:
[2018-10-17] MEDS: LASIX GT SCH (08:36)
[2018-10-17] MEDS: PROzac PO SCH (08:36)
[2018-10-17] MEDS: PROTONIX INJ 40 MG VIAL IVP SCH ×2 (08:36→21:16)
[2018-10-17] MEDS: CLARITIN GT SCH (08:36)
[2018-10-17] MEDS: LEVAQUIN PREMIX IV 750 MG 750 MG/150 ML BAG IV SCH (08:37)
[2018-10-17] MEDS: ASPIRIN PO SCH (08:48)
[2018-10-17] MEDS: PHENERGAN INJ 25 MG IV PRN ×2 (09:56→15:29)
[2018-10-17] MEDS: PULMICORT NEB TX 0.5 MG NEB SCH ×2 (10:04→20:05)
[2018-10-17] MEDS: BROVANA IN SCH ×2 (10:04→20:05)
--- NOTE | 2018-10-17 10:53 | PCM.PROG ---
Progress Note - Progress Note for Day of Date of Exam: 10/17/18 - Subjective Subjective: WAS ADMITTED ON 10/10/18 SWINGBED FOR PHYSICAL THERAPY FOLLOWING AN ISCHEMIC STROKE. HE WAS CHANGED TO INPATIENT ADMISSION ON 10/13 FOR ASPIRATION PNEUMONIA. 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 TODAY, HE IS ALERT AND ORIENTED ON MORNING ROUNDS. HE C ONTINUES WITH COUGH, SHORTNESS OF BREATH, AND DIFFICULTY SWALLOWING. ON EXAMINATION, HEART IS REGULAR IN RATE AND RHYTHM. BILATERAL LUNGS ARE NOTED WITH DIMINISHED LUNG SOUNDS THROUGHOUT. ABDOMEN IS ROUND, SOFT, AND NON-TENDER WITH NORMAL BOWEL SOUNDS NOTED IN ALL QUADRANTS. HIS VITALS THIS MORNING ARE 97.9-70-20-98%NC-106/56. LABS WERE OBTAINED. ABNORMAL LAB VALUES INCLUDE THE FOLLOWING: WBC 10.3, RBC 4.23, HGB 12.9, HCT 36.5, BUN 20, TOTAL PROTEIN 5.9, ALBUMIN 2.5. BLOOD CULTURES ARE PENDING. CHEST XRAY WAS OBTAINED TODAY AND REVEALED: Slight improvement retrocardiac left lower lobe infiltrate. Diffuse interstitial lung changes likely chronic. Mild cardiomegaly without congestive heart failure. HE IS CURRENTLY RECEIVING LEVAQUIN 750MG IV DAILY, RESPIRATORY TREATMENTS, AND SUPPLEMENTAL OXYGEN. PHYSICAL THERAPY CONTINUES TO WORK WITH PATIENT. HE IS SCHEDULED FOR A BARIUM SWALLOW TODAY. WE WILL CONTINUE WITH CURRENT PLAN OF CARE TODAY. OTHERWISE, WE WILL FOLLOW UP WITH AM LABS AND CONT INUE TO MONITOR. - Past Medical Family Social History Past Med/Fam/Surg Hx: No changes since H&P Allergies: Allergies lorazepam [From Ativan] Allergy (Verified 10/10/18 19:37) zolpidem [From Ambien] Allergy (Verified 10/10/18 19:37) - Review of Systems ROS: No change since H&P - Vital Signs and I&O's Vital Signs: Temperature 97.9 F Pulse Rate [Right Brachial] 70 Pulse Rate 68 Respiratory Rate 20 Blood Pressure [Right Arm] 106/56 Blood Pressure 115/59 O2 Sat by Pulse Oximetry 98 Intake and Output: Intake & Output 10/14/18 10/15/18 10/16/18 10/17/18 11:59 11:59 11:59 11:59 Intake Total 1092 / 1092 0 / 0 480 / 480 0 / 0 Balance 1092 / 1092 0 / 0 480 / 480 0 / 0 - Physical Exam Oriented: Normal Eyes: Normal Ear: Normal Nose: Normal Throat: Normal Respiratory: Diminished, Rhonchi Cardiovascular: Normal : Normal Auscultation: Bowel Sounds: Normal Palpation: Normal Tenderness: Normal Skin: Normal, Other (PEG TUBE) Musculoskeletal: Motor Deficit Mood Description: Calm Speech Pattern: Clear, Appropriate - Laboratory and Diagnostics Result Diagrams: 10/17/18 05:19 10/17/18 05:19 Labs: 10/13/18 15:12 Blood Blood Culture - Preliminary 10/13/18 15:06 Blood Blood Culture - Preliminary Laboratory WBC 10.3 X10^3/uL (3.6-10.0) H 10/17/18 05:19 RBC 4.23 X10^6/uL (4.7-6.0) L 10/17/18 05:19 Hgb 12.9 g/dL (13.5-18.0) L 10/17/18 05:19 Hct 36.5 % (42.0-54.0) L 10/17/18 05:19 MCV 86.2 fL (80.0-100.0) 10/17/18 05:19 MCH 30.6 pg (27.0-34.0) 10/17/18 05:19 MCHC 35.5 g/dL (33.0-35.0) H 10/17/18 05:19 RDW 14.6 % (11.6-16.5) 10/17/18 05:19 Plt Count 318 X10^3/uL (150.0-450.0) 10/17/18 05:19 MPV 8.7 fL (7.4-11.0) 10/17/18 05:19 Neut % (Auto) 74.9 % (42.0-75.0) 10/17/18 05:19 Lymph % (Auto) 9.2 % (21.0-51.0) L 10/17/18 05:19 Marion % (Auto) 12.5 % (0.0-13.0) 10/17/18 05:19 Eos % (Auto) 3.0 % (0.9-2.9) H 10/17/18 05:19 Baso % (Auto) 0.4 % (0.2-1.0) 10/17/18 05:19 Neut # (Auto) 7.7 x10^3/uL (2.2-4.8) H 10/17/18 05:19 Lymph # (Auto) 1.0 X10^3/uL (1.3-2.9) L 10/17/18 05:19 Marion # (Auto) 1.3 x10^3/uL (0.3-0.8) H 10/17/18 05:19 Eos # (Auto) 0.3 x10^3/uL (0.0-0.2) H 10/17/18 05:19 Baso # (Auto) 0.0 X10^3/uL (0.0-0.1) 10/17/18 05:19 Absolute Nucleated RBC 0.0 /100WBC 10/17/18 05:19 Sodium 137 mmol/L (136-145) 10/17/18 05:19 Corrected Sodium TNP 10/17/18 05:19 Potassium 3.9 mmol/L (3.5-5.1) 10/17/18 05:19 Chloride 103 mmol/L (98-107) 10/17/18 05:19 Carbon Dioxide 24.1 mmol/L (21-32) 10/17/18 05:19 BUN 20 mg/dL (7-18) H 10/17/18 05:19 Creatinine 1.11 mg/dL (0.70-1.30) 10/17/18 05:19 Est GFR (MDRD) Af Amer > 60 (>60) 10/17/18 05:19 Est GFR (MDRD) Non-Af > 60 (>60) 10/17/18 05:19 Glucose 96 mg/dL (65-99) 10/17/18 05:19 Calcium 8.7 mg/dL (8.5-10.1) 10/17/18 05:19 Corrected Calcium 9.9 mg/dL (8.5-10.1) 10/17/18 05:19 Total Bilirubin 0.50 mg/dL (0.2-1.0) 10/17/18 05:19 AST 29 Units/L (15-37) 10/17/18 05:19 ALT 38 Units/L (12-78) 10/17/18 05:19 Alkaline Phosphatase 72 Units/L (46-116) 10/17/18 05:19 Total Protein 5.9 g/dL (6.4-8.2) L 10/17/18 05:19 Albumin 2.5 g/dL (3.4-5.0) L 10/17/18 05:19 Globulin 3.4 g/dL (2.5-4.5) 10/17/18 05:19 Albumin/Globulin Ratio 0.7 Ratio (1.1-2.1) L 10/17/18 05:19 - Plan (1) Pneumonia Status: Acute Plan: CONTINUE IV ATBX, RESP THERAPY. SUPPLEMENTAL O2, REPEAT AM CXR AND LABS (2) Weakness Status: Acute Plan: CONTINUE PHYSICAL THERAPY (3) Aphagia Status: Acute Plan: BARIUM SWALLOW TODAY
[2018-10-17] MEDS ORDERED: NS 1/2 1000 ML IV 1,000 ML IV ONE (18:33)
[2018-10-17] MEDS: LIPITOR TAB 40 MG GT SCH (21:17)
[2018-10-17] MEDS: XALATAN EACHEYE SCH (21:17)
[2018-10-17] MEDS: SENOKOT PO SCH (21:17)
[2018-10-17] MEDS: ROBITUSSIN (PLAIN) GT PRN (21:39)
[2018-10-18] MEDS: XOPENEX 1.25 MG/3 ML NEBULE NEB SCH ×4 (00:56→17:31)
[2018-10-18] MEDS: HEPARIN SODIUM INJ 5000 UNITS SC SCH ×3 (05:31→21:11)
[2018-10-18] MEDS: ARTIFICIAL TEARS DROPS EACHEYE SCH ×3 (05:32→21:12)
[2018-10-18 06:05] LABS: BASOPHILS # (AUTO) 0.1 X10^3/uL (0.0-0.1); BASOPHILS % (AUTO) 0.6 % (0.2-1.0); EOSINOPHILS # (AUTO) 0.3 x10^3/uL (0.0-0.2); EOSINOPHILS % (AUTO) 3.4 % (0.9-2.9); HEMOGLOBIN 12.6 g/dL (13.5-18.0); LYMPHOCYTES % (AUTO) 12.7 % (21.0-51.0); MEAN CORPUSCULAR HEMOGLOBIN 30.4 pg (27.0-34.0); MEAN CORPUSCULAR HGB CONC 35.1 g/dL (33.0-35.0); MEAN CORPUSCULAR VOLUME 86.7 fL (80.0-100.0); MEAN PLATELET VOLUME 8.4 fL (7.4-11.0); MONOCYTES # (AUTO) 1.1 x10^3/uL (0.3-0.8); MONOCYTES % (AUTO) 13.2 % (0.0-13.0); NEUTROPHILS # (AUTO) 5.8 x10^3/uL (2.2-4.8); NEUTROPHILS % (AUTO) 70.1 % (42.0-75.0); PLATELET COUNT 317 X10^3/uL (150.0-450.0); RED BLOOD COUNT 4.15 X10^6/uL (4.7-6.0); RED CELL DISTRIBUTION WIDTH 14.8 % (11.6-16.5); WHITE BLOOD COUNT 8.2 X10^3/uL (3.6-10.0)
[2018-10-18 06:11] LABS: ALANINE AMINOTRANSFERASE 40 Units/L (12-78); ALBUMIN 2.5 g/dL (3.4-5.0); ALKALINE PHOSPHATASE 70 Units/L (46-116); ASPARTATE AMINO TRANSFERASE 28 Units/L (15-37); BLOOD UREA NITROGEN 19 mg/dL (7-18); CALCIUM 8.8 mg/dL (8.5-10.1); CARBON DIOXIDE 25.9 mmol/L (21-32); CHLORIDE 102 mmol/L (98-107); CREATININE 1.23 mg/dL (0.70-1.30); SODIUM 137 mmol/L (136-145); TOTAL PROTEIN 5.8 g/dL (6.4-8.2); eGFR NON BLACK RACES 59 (>60)
[2018-10-18] MEDS: NS 1/2 1000 ML IV 1,000 ML IV SCH ×3 (06:12→21:10)
[2018-10-18] MEDS ORDERED: POTASSIUM CHL 60 MEQ/NS 0.45% 500 ML IV PRN (06:20)
[2018-10-18] MEDS ORDERED: K-RIDER 10 MEQ/NS 100 ML 10 MEQ/100 ML BAG IV PRN (06:20)
[2018-10-18] MEDS ORDERED: MICRO K EXTEN CAP 10 MEQ PO PRN (06:20)
[2018-10-18] MEDS ORDERED: POTASSIUM CHL 40 MEQ/NS 0.45% 500 ML IV PRN (06:20)
[2018-10-18] MEDS ORDERED: K-DUR TAB 20 MEQ PO PRN (06:20)
[2018-10-18] MEDS ORDERED: KLOR-CON PO PRN (06:20)
[2018-10-18] MEDS ORDERED: MAGNESIUM SULFATE 1 GRAM/100 mL PREMIX 1 GM/100 ML BAG IV PRN (06:20)
--- NOTE | 2018-10-18 06:29 | RAD ---
HISTORY: Follow-up pneumonia Study: Chest AP portable Comparison: 10/17/2018 Findings: The patient is rotated to the right. The heart is mildly enlarged. No congestive heart failure is noted. The lungs are well inflated. There are some interstitial lung changes present, stable. A small residual left lower lobe infiltrate remains. The bony thorax is unremarkable. IMPRESSION: Small residual left lower lobe infiltrate Interstitial lung changes, stable Mild cardiomegaly without congestive heart failure Reported By:
[2018-10-18] MEDS: POTASSIUM CHLORIDE LIQ 20 MEQ UDC PO PRN (06:47)
[2018-10-18] MEDS: PULMICORT NEB TX 0.5 MG NEB SCH ×2 (09:16→21:09)
[2018-10-18] MEDS: BROVANA IN SCH ×2 (09:17→21:10)
[2018-10-18] MEDS: LEVAQUIN PREMIX IV 750 MG 750 MG/150 ML BAG IV SCH (09:29)
[2018-10-18] MEDS: PROTONIX INJ 40 MG VIAL IVP SCH ×2 (09:29→21:09)
[2018-10-18] MEDS: PROzac PO SCH (09:30)
[2018-10-18] MEDS: LASIX GT SCH (09:30)
[2018-10-18] MEDS: CLARITIN GT SCH (09:30)
[2018-10-18] MEDS: ASPIRIN PO SCH (09:30)
[2018-10-18] MEDS ORDERED: MILK OF MAGNESIA PO SCH (10:00)
[2018-10-18] MEDS: PHENERGAN INJ 25 MG IV PRN (11:18)
--- NOTE | 2018-10-18 16:12 | PCM.PROG ---
Progress Note - Progress Note for Day of Date of Exam: 10/18/18 - Subjective Subjective: WAS ADMITTED ON 10/10/18 SWINGBED FOR PHYSICAL THERAPY FOLLOWING AN ISCHEMIC STROKE. HE WAS CHANGED TO INPATIENT ADMISSION ON 10/13 FOR ASPIRATION PNEUMONIA. 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 TODAY, HE IS ALERT AND ORIENTED ON MORNING ROUNDS. HE C ONTINUES WITH COUGH, SHORTNESS OF BREATH, AND GENERALIZED WEAKNESS. ON EXAMINATION, HEART IS REGULAR IN RATE AND RHYTHM. BILATERAL LUNGS ARE NOTED WITH DIMINISHED LUNG SOUNDS THROUGHOUT. ABDOMEN IS ROUND, SOFT, AND NON-TENDER WITH NORMAL BOWEL SOUNDS NOTED IN ALL QUADRANTS. HIS VITALS THIS MORNING ARE 97.9-76-20-96%-111/55. LABS WERE OBTAINED. ABNORMAL LAB VALUES INCLUDE THE FOLLOWING: RBC 4.15, HGB 12.6, HCT 36.0, BUN 19, GLUCOSE 104, TOTAL PROTEIN 5.8, ALBUMIN 2.5. BLOOD CULTURES ARE PENDING. PRELIMINARY CULTURES REPORT NO GROWTH. CHEST XRAY WAS OBTAINED TODAY AND REVEALED: Small residual left lower lobe infiltrate. Interstitial lung changes, stable. Mild cardiomegaly without congestive heart failure. HE IS CURRENTLY RECEIVING LEVAQUIN 750MG IV DAILY, RESPIRATORY TREATMENTS, AND SUPPLEMENTAL OXYGEN. PHYSICAL THERAPY CONTINUES TO WORK WITH PATIENT. WE WILL CONTINUE WITH CURRENT PLAN OF CARE TODAY. OTHERWISE, WE WILL FOLLOW UP WITH AM LABS AND CONTINUE TO MONITOR. - Past Medical Family Social History Past Med/Fam/Surg Hx: No changes since H&P Allergies: Allergies lorazepam [From Ativan] Allergy (Verified 10/10/18 19:37) zolpidem [From Ambien] Allergy (Verified 10/10/18 19:37) - Review of Systems ROS: No change since H&P - Vital Signs and I&O's Vital Signs: Temperature 97.6 F Pulse Rate [Right Brachial] 63 Pulse Rate 73 Respiratory Rate 20 Blood Pressure [Right Arm] 107/54 Blood Pressure 115/59 O2 Sat by Pulse Oximetry 98 Intake and Output: Intake & Output 10/16/18 10/17/18 10/18/18 10/19/18 11:59 11:59 11:59 11:59 Intake Total 480 / 480 0 / 0 300 / 300 240 / 240 Balance 480 / 480 0 / 0 300 / 300 240 / 240 - Physical Exam Oriented: Normal Eyes: Normal Ear: Normal Nose: Normal Throat: Normal Respiratory: Diminished, Rhonchi Cardiovascular: Normal : Normal Auscultation: Bowel Sounds: Normal Palpation: Normal Tenderness: Normal Skin: Normal, Other (PEG TUBE) Musculoskeletal: Motor Deficit Mood Description: Calm Speech Pattern: Clear, Appropriate - Laboratory and Diagnostics Result Diagrams: 10/18/18 05:16 10/18/18 05:16 Labs: 10/13/18 15:12 Blood Blood Culture - Preliminary 10/13/18 15:06 Blood Blood Culture - Preliminary Laboratory WBC 8.2 X10^3/uL (3.6-10.0) 10/18/18 05:16 RBC 4.15 X10^6/uL (4.7-6.0) L 10/18/18 05:16 Hgb 12.6 g/dL (13.5-18.0) L 10/18/18 05:16 Hct 36.0 % (42.0-54.0) L 10/18/18 05:16 MCV 86.7 fL (80.0-100.0) 10/18/18 05:16 MCH 30.4 pg (27.0-34.0) 10/18/18 05:16 MCHC 35.1 g/dL (33.0-35.0) H 10/18/18 05:16 RDW 14.8 % (11.6-16.5) 10/18/18 05:16 Plt Count 317 X10^3/uL (150.0-450.0) 10/18/18 05:16 MPV 8.4 fL (7.4-11.0) 10/18/18 05:16 Neut % (Auto) 70.1 % (42.0-75.0) 10/18/18 05:16 Lymph % (Auto) 12.7 % (21.0-51.0) L 10/18/18 05:16 Hopkins % (Auto) 13.2 % (0.0-13.0) H 10/18/18 05:16 Eos % (Auto) 3.4 % (0.9-2.9) H 10/18/18 05:16 Baso % (Auto) 0.6 % (0.2-1.0) 10/18/18 05:16 Neut # (Auto) 5.8 x10^3/uL (2.2-4.8) H 10/18/18 05:16 Lymph # (Auto) 1.0 X10^3/uL (1.3-2.9) L 10/18/18 05:16 Hopkins # (Auto) 1.1 x10^3/uL (0.3-0.8) H 10/18/18 05:16 Eos # (Auto) 0.3 x10^3/uL (0.0-0.2) H 10/18/18 05:16 Baso # (Auto) 0.1 X10^3/uL (0.0-0.1) 10/18/18 05:16 Absolute Nucleated RBC 0.0 /100WBC 10/18/18 05:16 Sodium 137 mmol/L (136-145) 10/18/18 05:16 Corrected Sodium TNP 10/18/18 05:16 Potassium 3.8 mmol/L (3.5-5.1) 10/18/18 05:16 Chloride 102 mmol/L (98-107) 10/18/18 05:16 Carbon Dioxide 25.9 mmol/L (21-32) 10/18/18 05:16 BUN 19 mg/dL (7-18) H 10/18/18 05:16 Creatinine 1.23 mg/dL (0.70-1.30) 10/18/18 05:16 Est GFR (MDRD) Af Amer > 60 (>60) 10/18/18 05:16 Est GFR (MDRD) Non-Af 59 (>60) 10/18/18 05:16 Glucose 104 mg/dL (65-99) H 10/18/18 05:16 Calcium 8.8 mg/dL (8.5-10.1) 10/18/18 05:16 Corrected Calcium 10.0 mg/dL (8.5-10.1) 10/18/18 05:16 Magnesium 2.0 mg/dL (1.7-2.9) 10/18/18 05:16 Total Bilirubin 0.50 mg/dL (0.2-1.0) 10/18/18 05:16 AST 28 Units/L (15-37) 10/18/18 05:16 ALT 40 Units/L (12-78) 10/18/18 05:16 Alkaline Phosphatase 70 Units/L (46-116) 10/18/18 05:16 Total Protein 5.8 g/dL (6.4-8.2) L 10/18/18 05:16 Albumin 2.5 g/dL (3.4-5.0) L 10/18/18 05:16 Globulin 3.3 g/dL (2.5-4.5) 10/18/18 05:16 Albumin/Globulin Ratio 0.8 Ratio (1.1-2.1) L 10/18/18 05:16 - Plan (1) Pneumonia Status: Acute Plan: CONTINUE IV ATBX, RESP THERAPY. SUPPLEMENTAL O2, REPEAT AM CXR AND LABS (2) Weakness Status: Acute Plan: CONTINUE PHYSICAL THERAPY (3) Aphagia Status: Acute Plan: BARIUM SWALLOW TODAY
[2018-10-18] MEDS ORDERED: NS 1/2 1000 ML IV 1,000 ML IV ONE (19:58)
[2018-10-18] MEDS: XALATAN EACHEYE SCH (21:07)
[2018-10-18] MEDS: COLACE CAP 100 MG PO SCH (21:09)
[2018-10-18] MEDS: SENOKOT PO SCH (21:09)
[2018-10-18] MEDS: ROBITUSSIN (PLAIN) GT PRN (21:09)
[2018-10-18] MEDS: LIPITOR TAB 40 MG GT SCH (21:09)
[2018-10-19] MEDS: XOPENEX 1.25 MG/3 ML NEBULE NEB SCH ×4 (01:08→17:07)
[2018-10-19] MEDS: ARTIFICIAL TEARS DROPS EACHEYE SCH ×3 (05:59→21:31)
[2018-10-19] MEDS: HEPARIN SODIUM INJ 5000 UNITS SC SCH ×3 (05:59→21:23)
[2018-10-19 06:10] LABS: BASOPHILS % (AUTO) 0.4 % (0.2-1.0); EOSINOPHILS # (AUTO) 0.3 x10^3/uL (0.0-0.2); HEMATOCRIT 35.6 % (42.0-54.0); HEMOGLOBIN 12.7 g/dL (13.5-18.0); LYMPHOCYTES % (AUTO) 10.8 % (21.0-51.0); MEAN CORPUSCULAR HEMOGLOBIN 30.8 pg (27.0-34.0); MEAN CORPUSCULAR HGB CONC 35.7 g/dL (33.0-35.0); MEAN CORPUSCULAR VOLUME 86.2 fL (80.0-100.0); MEAN PLATELET VOLUME 8.7 fL (7.4-11.0); MONOCYTES # (AUTO) 1.3 x10^3/uL (0.3-0.8); MONOCYTES % (AUTO) 13.7 % (0.0-13.0); NEUTROPHILS # (AUTO) 6.6 x10^3/uL (2.2-4.8); NEUTROPHILS % (AUTO) 72.1 % (42.0-75.0); PLATELET COUNT 316 X10^3/uL (150.0-450.0); RED BLOOD COUNT 4.13 X10^6/uL (4.7-6.0); RED CELL DISTRIBUTION WIDTH 14.9 % (11.6-16.5); WHITE BLOOD COUNT 9.2 X10^3/uL (3.6-10.0)
[2018-10-19 06:21] LABS: ALANINE AMINOTRANSFERASE 43 Units/L (12-78); ALBUMIN 2.6 g/dL (3.4-5.0); ALKALINE PHOSPHATASE 69 Units/L (46-116); ASPARTATE AMINO TRANSFERASE 29 Units/L (15-37); BLOOD UREA NITROGEN 20 mg/dL (7-18); CALCIUM 8.4 mg/dL (8.5-10.1); CARBON DIOXIDE 28.3 mmol/L (21-32); CHLORIDE 101 mmol/L (98-107); COR CA(FOR HYPOALB) 9.5 mg/dL (8.5-10.1); COR NA(FOR HYPERGLY) 139 mmol/L (136-145); CREATININE 1.22 mg/dL (0.70-1.30); SODIUM 139 mmol/L (136-145); TOTAL PROTEIN 5.7 g/dL (6.4-8.2); eGFR NON BLACK RACES 60 (>60)
--- NOTE | 2018-10-19 07:46 | RAD ---
HISTORY: Follow-up pneumonia Study: Chest AP portable Comparison: 10/18/2018 Findings: The heart is mildly enlarged. No congestive heart failure is noted. The aorta is calcified. The lungs are well inflated. Stable interstitial lung changes are present. The previously noted left lower lobe infiltrate appears to have resolved. No pleural effusions are identified. The bony thorax is unremarkable. IMPRESSION: Resolution of the previously noted left basilar lung infiltrate Mild cardiomegaly without congestive heart failure Diffuse interstitial lung changes, stable Reported By:
[2018-10-19] MEDS: PROzac PO SCH (09:00)
[2018-10-19] MEDS: CLARITIN GT SCH (09:00)
[2018-10-19] MEDS: LASIX GT SCH (09:00)
[2018-10-19] MEDS: ASPIRIN PO SCH (09:00)
--- NOTE | 2018-10-19 09:02 | PCM.PROG ---
Progress Note - Progress Note for Day of Date of Exam: 10/19/18 - Subjective Subjective: IS BEING TREATED FOR ASPIRATION PNEUMONIA. 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 TODAY, HE IS ALERT AND ORIENTED, SITTING UP IN BED ON MORNING ROUNDS. HE CONTINUES WITH COUGH, SHORTNESS OF BREATH, AND GENERALIZED WEAKNESS, BUT REPORTS IMPROVEMENT SINCE YESTERDAY. ON EXAMINATION, HEART IS REGULAR IN RATE AND RHYTHM. BILATERAL LUNGS ARE NOTED WITH DIMINISHED LUNG SOUNDS THROUGHOUT. ABDOMEN IS ROUND, SOFT, AND NON-TENDER WITH NORMAL BOWEL SOUNDS NOTED IN ALL QUADRANTS. PEG TUBE NOTED. HIS VITALS THIS MORNING ARE 97.7-66-20-95%-99/56. LABS WERE OBTAINED. ABNORMAL LAB VALUES INCLUDE THE FOLLOWING: RBC 4.13, HGB 12.7, HCT 35.6, BUN 20, GLUCOSE 112, CALCIUN 8.4, TOTAL PROTEIN 5.7, ALBUMIN 2.6. BLOOD CULTURES REPORT NO GROWTH. CHEST XRAY WAS OBTAINED TODAY AND REVEALED: Resolution of the previously noted left basilar lung infiltrate. Mild cardiomegaly without congestive heart failure. Diffuse interstitial lung changes, stable. HE IS CURRENTLY RECEIVING LEVAQUIN 750MG IV DAILY, RESPIRATORY TREATMENTS, AND SUPPLEMENTAL OXYGEN. PHYSICAL THERAPY CONTINUES TO WORK WITH PATIENT. HE WILL BE GOING TO [facility] TOMORROW FOR PHYSICAL THERAPY AND REHABILITATION. WE WILL CONTINUE WITH CURRENT PLAN OF CARE TODAY. OTHERWISE, WE WILL FOLLOW UP WITH AM LABS AND CONTINUE TO MONITOR. - Past Medical Family Social History Past Med/Fam/Surg Hx: No changes since H&P Allergies: Allergies lorazepam [From Ativan] Allergy (Verified 10/10/18 19:37) zolpidem [From Ambien] Allergy (Verified 10/10/18 19:37) - Review of Systems ROS: No change since H&P - Vital Signs and I&O's Vital Signs: Temperature 97.7 F Pulse Rate [Right Brachial] 66 Pulse Rate 72 Respiratory Rate 20 Blood Pressure [Right Arm] 99/56 Blood Pressure 115/59 O2 Sat by Pulse Oximetry 95 Intake and Output: Intake & Output 10/16/18 10/17/18 10/18/18 10/19/18 11:59 11:59 11:59 11:59 Intake Total 480 / 480 0 / 0 300 / 300 1266 / 1266 Balance 480 / 480 0 / 0 300 / 300 1266 / 1266 - Physical Exam Oriented: Normal Eyes: Normal Ear: Normal Nose: Normal Throat: Normal Respiratory: Diminished Cardiovascular: Normal : Normal Auscultation: Bowel Sounds: Normal Palpation: Normal Tenderness: Normal Skin: Normal, Other (PEG TUBE) Musculoskeletal: Motor Deficit Mood Description: Calm Speech Pattern: Clear, Appropriate - Laboratory and Diagnostics Result Diagrams: 10/19/18 04:18 10/19/18 04:18 Labs: 10/13/18 15:12 Blood Blood Culture - Preliminary 10/13/18 15:06 Blood Blood Culture - Preliminary Laboratory WBC 9.2 X10^3/uL (3.6-10.0) 10/19/18 04:18 RBC 4.13 X10^6/uL (4.7-6.0) L 10/19/18 04:18 Hgb 12.7 g/dL (13.5-18.0) L 10/19/18 04:18 Hct 35.6 % (42.0-54.0) L 10/19/18 04:18 MCV 86.2 fL (80.0-100.0) 10/19/18 04:18 MCH 30.8 pg (27.0-34.0) 10/19/18 04:18 MCHC 35.7 g/dL (33.0-35.0) H 10/19/18 04:18 RDW 14.9 % (11.6-16.5) 10/19/18 04:18 Plt Count 316 X10^3/uL (150.0-450.0) 10/19/18 04:18 MPV 8.7 fL (7.4-11.0) 10/19/18 04:18 Neut % (Auto) 72.1 % (42.0-75.0) 10/19/18 04:18 Lymph % (Auto) 10.8 % (21.0-51.0) L 10/19/18 04:18 [place] % (Auto) 13.7 % (0.0-13.0) H 10/19/18 04:18 Eos % (Auto) 3.0 % (0.9-2.9) H 10/19/18 04:18 Baso % (Auto) 0.4 % (0.2-1.0) 10/19/18 04:18 Neut # (Auto) 6.6 x10^3/uL (2.2-4.8) H 10/19/18 04:18 Lymph # (Auto) 1.0 X10^3/uL (1.3-2.9) L 10/19/18 04:18 [place] # (Auto) 1.3 x10^3/uL (0.3-0.8) H 10/19/18 04:18 Eos # (Auto) 0.3 x10^3/uL (0.0-0.2) H 10/19/18 04:18 Baso # (Auto) 0.0 X10^3/uL (0.0-0.1) 10/19/18 04:18 Absolute Nucleated RBC 0.0 /100WBC 10/19/18 04:18 Sodium 139 mmol/L (136-145) 10/19/18 04:18 Corrected Sodium 139 mmol/L (136-145) 10/19/18 04:18 Potassium 3.7 mmol/L (3.5-5.1) 10/19/18 04:18 Chloride 101 mmol/L (98-107) 10/19/18 04:18 Carbon Dioxide 28.3 mmol/L (21-32) 10/19/18 04:18 BUN 20 mg/dL (7-18) H 10/19/18 04:18 Creatinine 1.22 mg/dL (0.70-1.30) 10/19/18 04:18 Est GFR (MDRD) Af Amer > 60 (>60) 10/19/18 04:18 Est GFR (MDRD) Non-Af 60 (>60) 10/19/18 04:18 Glucose 112 mg/dL (65-99) H 10/19/18 04:18 Calcium 8.4 mg/dL (8.5-10.1) L 10/19/18 04:18 Corrected Calcium 9.5 mg/dL (8.5-10.1) 10/19/18 04:18 Magnesium 2.0 mg/dL (1.7-2.9) 10/18/18 05:16 Total Bilirubin 0.40 mg/dL (0.2-1.0) 10/19/18 04:18 AST 29 Units/L (15-37) 10/19/18 04:18 ALT 43 Units/L (12-78) 10/19/18 04:18 Alkaline Phosphatase 69 Units/L (46-116) 10/19/18 04:18 Total Protein 5.7 g/dL (6.4-8.2) L 10/19/18 04:18 Albumin 2.6 g/dL (3.4-5.0) L 10/19/18 04:18 Globulin 3.1 g/dL (2.5-4.5) 10/19/18 04:18 Albumin/Globulin Ratio 0.8 Ratio (1.1-2.1) L 10/19/18 04:18 - Plan (1) Pneumonia Status: Acute Plan: CONTINUE IV ATBX, RESP THERAPY. SUPPLEMENTAL O2, REPEAT AM CXR AND LABS (2) Weakness Status: Acute Plan: CONTINUE PHYSICAL THERAPY (3) Aphagia Status: Acute Plan: BARIUM SWALLOW TODAY
[2018-10-19] MEDS: PROTONIX INJ 40 MG VIAL IVP SCH ×2 (09:03→21:23)
[2018-10-19] MEDS: LEVAQUIN PREMIX IV 750 MG 750 MG/150 ML BAG IV SCH (09:03)
[2018-10-19] MEDS: ZOFRAN INJ 4 MG VIAL IVP PRN (09:04)
[2018-10-19] MEDS: PULMICORT NEB TX 0.5 MG NEB SCH ×2 (09:17→20:49)
[2018-10-19] MEDS: BROVANA IN SCH ×2 (09:17→20:49)
[2018-10-19] MEDS: PHENERGAN INJ 25 MG IV PRN (15:40)
[2018-10-19] MEDS: NS 1/2 1000 ML IV 1,000 ML IV SCH (18:02)
[2018-10-19] MEDS: LIPITOR TAB 40 MG GT SCH (21:22)
[2018-10-19] MEDS: COLACE CAP 100 MG PO SCH (21:23)
[2018-10-19] MEDS: SENOKOT PO SCH (21:23)
[2018-10-19] MEDS: XALATAN EACHEYE SCH (21:31)
[2018-10-20] MEDS: XOPENEX 1.25 MG/3 ML NEBULE NEB SCH ×3 (01:09→11:58)
[2018-10-20 05:03] LABS: BASOPHILS % (AUTO) 0.5 % (0.2-1.0); EOSINOPHILS # (AUTO) 0.3 x10^3/uL (0.0-0.2); EOSINOPHILS % (AUTO) 2.9 % (0.9-2.9); HEMATOCRIT 34.9 % (42.0-54.0); HEMOGLOBIN 12.3 g/dL (13.5-18.0); LYMPHOCYTES # (AUTO) 0.8 X10^3/uL (1.3-2.9); LYMPHOCYTES % (AUTO) 8.5 % (21.0-51.0); MEAN CORPUSCULAR HEMOGLOBIN 30.9 pg (27.0-34.0); MEAN CORPUSCULAR HGB CONC 35.2 g/dL (33.0-35.0); MEAN CORPUSCULAR VOLUME 87.7 fL (80.0-100.0); MEAN PLATELET VOLUME 8.3 fL (7.4-11.0); MONOCYTES # (AUTO) 1.1 x10^3/uL (0.3-0.8); NEUTROPHILS # (AUTO) 7.1 x10^3/uL (2.2-4.8); NEUTROPHILS % (AUTO) 76.1 % (42.0-75.0); PLATELET COUNT 309 X10^3/uL (150.0-450.0); RED BLOOD COUNT 3.97 X10^6/uL (4.7-6.0); RED CELL DISTRIBUTION WIDTH 14.8 % (11.6-16.5); WHITE BLOOD COUNT 9.3 X10^3/uL (3.6-10.0)
[2018-10-20 05:08] LABS: ALANINE AMINOTRANSFERASE 39 Units/L (12-78); ALBUMIN 2.5 g/dL (3.4-5.0); ALKALINE PHOSPHATASE 69 Units/L (46-116); ASPARTATE AMINO TRANSFERASE 23 Units/L (15-37); BLOOD UREA NITROGEN 20 mg/dL (7-18); CALCIUM 8.2 mg/dL (8.5-10.1); CARBON DIOXIDE 29.2 mmol/L (21-32); CHLORIDE 103 mmol/L (98-107); COR CA(FOR HYPOALB) 9.4 mg/dL (8.5-10.1); COR NA(FOR HYPERGLY) 139 mmol/L (136-145); CREATININE 1.31 mg/dL (0.70-1.30); SODIUM 138 mmol/L (136-145); TOTAL PROTEIN 5.6 g/dL (6.4-8.2); eGFR NON BLACK RACES 55 (>60)
[2018-10-20] MEDS: HEPARIN SODIUM INJ 5000 UNITS SC SCH ×2 (05:29→13:49)
[2018-10-20] MEDS: ARTIFICIAL TEARS DROPS EACHEYE SCH ×2 (05:31→13:49)
--- NOTE | 2018-10-20 07:30 | RAD ---
HISTORY: Follow-up pneumonia Study: Chest AP portable Comparison: 10/19/2018 Findings: The heart remains enlarged. No congestive heart failure is noted. No acute alveolar infiltrates are identified. Chronic interstitial lung changes are stable. No pleural effusions are identified. The bony thorax is unremarkable. IMPRESSION: No significant change from the prior examination Reported By:
[2018-10-20] MEDS: PROTONIX INJ 40 MG VIAL IVP SCH (08:39)
[2018-10-20] MEDS: LASIX GT SCH (08:42)
[2018-10-20] MEDS: ASPIRIN PO SCH (08:42)
[2018-10-20] MEDS: PROzac PO SCH (08:42)
[2018-10-20] MEDS: ROBITUSSIN (PLAIN) GT PRN (08:42)
[2018-10-20] MEDS: CLARITIN GT SCH (08:42)
[2018-10-20] MEDS ORDERED: LEVAQUIN PREMIX IV 500 MG 500 MG/100 ML BAG IV SCH (09:00)
[2018-10-20] MEDS: NS 1/2 1000 ML IV 1,000 ML IV SCH (10:35)
[2018-10-20] MEDS: ZOFRAN INJ 4 MG VIAL IVP PRN (11:43)
[2018-10-20] MEDS: BROVANA IN SCH (11:59)
[2018-10-20] MEDS: PULMICORT NEB TX 0.5 MG NEB SCH (11:59)
[2018-10-20 13:02] VITALS: BP 120/59
[2018-10-20] MEDS: POTASSIUM CHLORIDE LIQ 20 MEQ UDC PO PRN (13:48)
== END 2018-10-20 15:50 | DRG 178 ==
LOC: MED/SURG 09:00
PROVIDERS: ADMIT Internal Medicine; ATTEND Internal Medicine
DX: R26.89 Other abnormalities of gait and mobility; R13.11 Dysphagia, oral phase; I69.354 Hemiplegia and hemiparesis following cerebral infarction affecting left non-dominant side; I51.7 Cardiomegaly; J69.0 Pneumonitis due to inhalation of food and vomit; I69.891 Dysphagia following other cerebrovascular disease; R06.02 Shortness of breath; R29.810 Facial weakness; B96.89 Other specified bacterial agents as the cause of diseases classified elsewhere; K21.9 Gastro-esophageal reflux disease without esophagitis
CPT/HCPCS: 36415; 71010; 71045; 80053; 83735; 85025; 87040; 92507; 92523; 92526; 92610; 94640; 97110; 97112; 97162; 97167; 97530; 97535; 99231; A4222; C9113; J1644; J1956; J2405; J2550; J7626